=== PATIENT | male | born 1955 | race Caucasian/White ===

== ENCOUNTER 2018-07-03 14:50 | Inpatient (IN) | payer MEDICAID ==
[~2018-07-03] VITALS: Ht 182.9 cm; Wt 114.8 kg
[2018-07-03 15:00] VITALS: BP_SYST 143
[2018-07-03 15:55] LABS: CALCIUM 8.3 mg/dL (8.4-11.0); CREATININE 3.9 mg/dL (0.55-1.30); POTASSIUM 4.7 mmol/L (3.5-5.1)
[2018-07-03 16:02] LABS: ALBUMIN 2.9 g/dL (3.4-4.8); TOTAL BILIRUBIN 0.2 mg/dL (0.0-1.0)
[2018-07-03 16:07] LABS: BASOPHILS % (AUTO) 0.8 % (0.0-2.0); EOSINOPHILS # (AUTO) 0.3 K/uL (0.0-0.4); EOSINOPHILS % (AUTO) 6.1 % (0.0-4.0); HEMATOCRIT 32.5 % (36-54); HEMOGLOBIN 11.1 g/dL (14.0-18.0); LYMPHOCYTES # (AUTO) 1.7 K/uL (1.0-5.5); LYMPHOCYTES % (AUTO) 30.6 % (20.5-51.5); MEAN CORPUSCULAR HEMOGLOBIN 31 pg (27-31); MEAN CORPUSCULAR HGB CONC 34 % (32-36); MEAN CORPUSCULAR VOLUME 91 fL (79.0-98.0); MONOCYTES # (AUTO) 0.4 K/uL (0.0-1.0); MONOCYTES % (AUTO) 7.7 % (1.7-9.3); NEUTROPHILS # (AUTO) 3.1 K/uL (1.8-7.7); NEUTROPHILS % (AUTO) 54.8 % (40.0-70.0); PLATELET COUNT (AUTO) 352 K/uL (130-430); RED BLOOD CELL COUNT(AUTO) 3.58 MIL/uL (4.2-6.2); WHITE BLOOD COUNT (AUTO) 5.5 K/uL (4.8-10.8)
[2018-07-03 16:12] LABS: INR 0.9 (0.80-1.20); PROTHROMBIN TIME 9.6 SECS (9.5-12.5)
[2018-07-03 16:46] LABS: CKMB RELATIVE INDEX 1.2 (0.0-2.9); CREATINE KINASE MB 6.8 ng/mL (0-3.6)
[2018-07-03 18:09] LABS: BILIRUBIN,URINE NEGATIVE (NEGATIVE); BLOOD, URINE NEGATIVE (NEGATIVE); CLARITY/URINE CLEAR (CLEAR); COLOR,URINE YELLOW (YELLOW); GLUCOSE,URINE NEGATIVE (NEGATIVE); KETONES,URINE 1+ (NEGATIVE); LEUKOCYTE ESTERASE ,URINE NEGATIVE (NEGATIVE); NITRITE, URINE NEGATIVE (NEGATIVE); PROTEIN URINE NEGATIVE (NEGATIVE); UROBILINOGEN,URINE 0.2 (0.2-1.0)
[2018-07-03] MEDS ORDERED: DOCU-144 PO (19:09)
[2018-07-03] MEDS ORDERED: INSU100V9 SQ (19:09)
[2018-07-03] MEDS ORDERED: DOXE75CA3 PO (19:09)
[2018-07-03] MEDS ORDERED: NEU300 PO (19:09)
[2018-07-03] MEDS ORDERED: METO-442 PO (19:09)
[2018-07-03] MEDS ORDERED: NOR10 PO (19:09)
[2018-07-03] MEDS ORDERED: HYDR-4039 PO (19:09)
[2018-07-03] MEDS ORDERED: INSU100V8 SQ (19:09)
[2018-07-03] MEDS ORDERED: ONDANSETRON 4 MG ODT TAB PO ONE (19:15)
[2018-07-03] MEDS ORDERED: HYDROcodone/ACETAMIN 5-325 MG TAB (NORCO/ VICODIN) PO ONE (19:15)
[2018-07-03 19:41] VITALS: BP_SYST 157
[2018-07-03] MEDS ORDERED: D5W 1,000 ML IV PRN (20:00)
[2018-07-03] MEDS ORDERED: DOCUSATE SODIUM 100 MG CAPSULE PO PRN (20:00)
[2018-07-03] MEDS ORDERED: GLUCOSE 15 GM GEL (in 37.5 GM TUBE) PO PRN (20:00)
[2018-07-03] MEDS ORDERED: DEXTROSE 50%-WATER 50 ML DISP.SYRIN IVP PRN (20:00)
[2018-07-03] MEDS: METOPROLOL TARTRATE 50 MG TABLET PO SCH (21:26)
[2018-07-03] MEDS: DOXEPINE (SINEQUAN) 25 MG CAP PO SCH (21:28)
[2018-07-04] VITALS: BP_SYST 145
[2018-07-04] MEDS: hydrALAZINE HCL 25 MG TABLET PO SCH ×3 (06:19→17:12)
[2018-07-04 08:16] VITALS: BP_SYST 126
[2018-07-04] MEDS: FUROSEMIDE 40 MG/4 ML VIAL IVP SCH ×2 (08:45→20:35)
[2018-07-04] MEDS: METOPROLOL TARTRATE 50 MG TABLET PO SCH ×2 (08:45→20:35)
[2018-07-04] MEDS: GABAPENTIN 300 MG CAPSULE PO SCH (08:45)
[2018-07-04] MEDS: amLODIPine BESYLATE 10 MG TABLET PO SCH (08:46)
[2018-07-04 12:00] VITALS: BP_SYST 138
[2018-07-04 16:00] VITALS: BP_SYST 141
[2018-07-04 20:32] VITALS: BP_SYST 145
[2018-07-04] MEDS: DOXEPINE (SINEQUAN) 25 MG CAP PO SCH (20:34)
[2018-07-04 23:03] VITALS: BP_SYST 152
[2018-07-05] MEDS: hydrALAZINE HCL 25 MG TABLET PO SCH ×3 (06:15→17:20)
[2018-07-05 07:10] LABS: BASOPHILS # (AUTO) 0.1 K/uL (0.0-0.2); EOSINOPHILS # (AUTO) 0.5 K/uL (0.0-0.4); EOSINOPHILS % (AUTO) 8.7 % (0.0-4.0); HEMATOCRIT 31.3 % (36-54); HEMOGLOBIN 10.5 g/dL (14.0-18.0); LYMPHOCYTES # (AUTO) 1.8 K/uL (1.0-5.5); LYMPHOCYTES % (AUTO) 35.2 % (20.5-51.5); MEAN CORPUSCULAR HEMOGLOBIN 30 pg (27-31); MEAN CORPUSCULAR HGB CONC 34 % (32-36); MEAN CORPUSCULAR VOLUME 90 fL (79.0-98.0); MONOCYTES # (AUTO) 0.5 K/uL (0.0-1.0); MONOCYTES % (AUTO) 8.6 % (1.7-9.3); NEUTROPHILS # (AUTO) 2.3 K/uL (1.8-7.7); NEUTROPHILS % (AUTO) 46.5 % (40.0-70.0); PLATELET COUNT (AUTO) 313 K/uL (130-430); RED BLOOD CELL COUNT(AUTO) 3.47 MIL/uL (4.2-6.2); RED CELL DISTRIBUTION WIDTH 12.9 % (9.0-15.0); WHITE BLOOD COUNT (AUTO) 5.2 K/uL (4.8-10.8)
[2018-07-05 07:20] LABS: CREATININE 3.69 mg/dL (0.55-1.30)
[2018-07-05 07:28] LABS: ALBUMIN 2.3 g/dL (3.4-4.8); TOTAL BILIRUBIN 0.3 mg/dL (0.0-1.0)
[2018-07-05 08:34] VITALS: BP_SYST 131
[2018-07-05] MEDS: amLODIPine BESYLATE 10 MG TABLET PO SCH (09:04)
[2018-07-05] MEDS: GABAPENTIN 300 MG CAPSULE PO SCH (09:04)
[2018-07-05] MEDS: FUROSEMIDE 40 MG/4 ML VIAL IVP SCH ×2 (09:04→21:11)
[2018-07-05] MEDS: METOPROLOL TARTRATE 50 MG TABLET PO SCH ×2 (09:04→21:10)
[2018-07-05 09:25] LABS: CREATININE 3.69 mg/dL (0.55-1.30)
[2018-07-05] MEDS: INSULIN REGULAR, HUMAN 100 UNITS/ML, 10 ML VIAL (novoLIN R) SUBCUT PRN ×3 (11:40→21:29)
[2018-07-05 12:37] VITALS: BP_SYST 145
[2018-07-05 15:21] LABS: CREATININE CLEARANCE,URINE 15.8 ml/min (80-120)
[2018-07-05 15:22] LABS: CREATININE,URINE 17.7 MG/DL (30-125)
[2018-07-05 17:15] VITALS: BP_SYST 143
[2018-07-05] MEDS ORDERED: ACETAMINOPHEN 650 MG SUPP.RECT RC PRN (18:00)
[2018-07-05] MEDS ORDERED: GLIMEPIRIDE 2 MG TABLET PO SCH (20:00)
[2018-07-05 20:30] VITALS: BP_SYST 147
[2018-07-05] MEDS: DOXEPINE (SINEQUAN) 25 MG CAP PO SCH (21:11)
[2018-07-05 23:49] VITALS: BP_SYST 134
[2018-07-06] MEDS: hydrALAZINE HCL 25 MG TABLET PO SCH ×2 (06:28→11:46)
[2018-07-06 07:32] LABS: BASOPHILS % (AUTO) 0.3 % (0.0-2.0); EOSINOPHILS # (AUTO) 0.4 K/uL (0.0-0.4); EOSINOPHILS % (AUTO) 7.4 % (0.0-4.0); HEMATOCRIT 34.4 % (36-54); HEMOGLOBIN 11.3 g/dL (14.0-18.0); LYMPHOCYTES # (AUTO) 1.7 K/uL (1.0-5.5); LYMPHOCYTES % (AUTO) 32.7 % (20.5-51.5); MEAN CORPUSCULAR HEMOGLOBIN 30 pg (27-31); MEAN CORPUSCULAR HGB CONC 33 % (32-36); MEAN CORPUSCULAR VOLUME 92 fL (79.0-98.0); MONOCYTES # (AUTO) 0.4 K/uL (0.0-1.0); NEUTROPHILS # (AUTO) 2.6 K/uL (1.8-7.7); NEUTROPHILS % (AUTO) 52.6 % (40.0-70.0); PLATELET COUNT (AUTO) 350 K/uL (130-430); RED BLOOD CELL COUNT(AUTO) 3.73 MIL/uL (4.2-6.2); RED CELL DISTRIBUTION WIDTH 12.4 % (9.0-15.0); WHITE BLOOD COUNT (AUTO) 5.1 K/uL (4.8-10.8)
[2018-07-06 07:48] LABS: CREATININE 4.06 mg/dL (0.55-1.30); POTASSIUM 4.5 mmol/L (3.5-5.1)
[2018-07-06 07:59] LABS: ALBUMIN 2.4 g/dL (3.4-4.8); TOTAL BILIRUBIN 0.3 mg/dL (0.0-1.0)
[2018-07-06 08:00] VITALS: BP_SYST 119
[2018-07-06] MEDS: amLODIPine BESYLATE 10 MG TABLET PO SCH (08:47)
[2018-07-06] MEDS: FUROSEMIDE 40 MG/4 ML VIAL IVP SCH (08:47)
[2018-07-06] MEDS: GABAPENTIN 300 MG CAPSULE PO SCH (08:47)
[2018-07-06] MEDS: METOPROLOL TARTRATE 50 MG TABLET PO SCH (08:48)
[2018-07-06] MEDS ORDERED: GLIMEPIRIDE 2 MG TABLET PO SCH (09:00)
[2018-07-06 10:23] VITALS: BP_SYST 115
[2018-07-06] MEDS ORDERED: FURO-149 PO (10:39)
[2018-07-06] MEDS ORDERED: DOCU250C14 PO (10:41)
[2018-07-06] MEDS ORDERED: GLIM2TAB2 PO (10:44)
[2018-07-06] MEDS ORDERED: NEU300 PO (10:45)
[2018-07-06 11:03] VITALS: BP_SYST 115
[2018-07-06] MEDS: INSULIN REGULAR, HUMAN 100 UNITS/ML, 10 ML VIAL (novoLIN R) SUBCUT PRN (12:18)
== END 2018-07-06 12:45 | disposition home or self-care (01) | DRG 469 ==
LOC: SED 14:50 → SMU 19:01
PROVIDERS: ADMIT Family Medicine; ATTEND Family Medicine
DX: N17.9 Acute kidney failure, unspecified (principal); E43 Unspecified severe protein-calorie malnutrition; E11.22 Type 2 diabetes mellitus with diabetic chronic kidney disease; E87.70 Fluid overload, unspecified; I12.0 Hypertensive chronic kidney disease with stage 5 chronic kidney disease or end stage renal disease; D64.9 Anemia, unspecified; N18.6 End stage renal disease; Z90.5 Acquired absence of kidney; Z68.34 Body mass index [BMI] 34.0-34.9, adult
CPT/HCPCS: 36415; 71045; 76770; 80053; 81003; 82550-TC; 82553-TC; 82575-TC; 82962; 83880; 84484; 85025; 85610-TC; 85730-TC; 99285; J1815; J1940; Q0162

== ENCOUNTER 2018-08-01 11:30 | Emergency (ER) | payer MEDICAID ==
[~2018-08-01] VITALS: Ht 180.3 cm; Wt 113.4 kg
[~2018-08-01 11:30] MED LIST: DOCU250C14 PO; DOXE75CA3 PO; FURO-149 PO; GLIM2TAB2 PO; HYDR-4039 PO; INSU100V8 SQ; INSU100V9 SQ; METO-442 PO; NEU300 PO; NOR10 PO
[2018-08-01 11:56] VITALS: BP_SYST 178
[2018-08-01 12:31] LABS: BASOPHILS % (AUTO) 0.4 % (0.0-2.0); EOSINOPHILS # (AUTO) 0.1 K/uL (0.0-0.4); EOSINOPHILS % (AUTO) 2.2 % (0.0-4.0); HEMOGLOBIN 9.6 g/dL (14.0-18.0); LYMPHOCYTES # (AUTO) 1.2 K/uL (1.0-5.5); LYMPHOCYTES % (AUTO) 19.9 % (20.5-51.5); MEAN CORPUSCULAR HEMOGLOBIN 31 pg (27-31); MEAN CORPUSCULAR HGB CONC 33 % (32-36); MEAN CORPUSCULAR VOLUME 92 fL (79.0-98.0); MONOCYTES # (AUTO) 0.4 K/uL (0.0-1.0); MONOCYTES % (AUTO) 6.9 % (1.7-9.3); NEUTROPHILS # (AUTO) 4.5 K/uL (1.8-7.7); NEUTROPHILS % (AUTO) 70.6 % (40.0-70.0); PLATELET COUNT (AUTO) 227 K/uL (130-430); RED BLOOD CELL COUNT(AUTO) 3.15 MIL/uL (4.2-6.2); RED CELL DISTRIBUTION WIDTH 13.3 % (9.0-15.0); WHITE BLOOD COUNT (AUTO) 6.2 K/uL (4.8-10.8)
[2018-08-01 12:41] LABS: CALCIUM 8.1 mg/dL (8.4-11.0); CREATININE 3.77 mg/dL (0.55-1.30); POTASSIUM 4.3 mmol/L (3.5-5.1)
[2018-08-01 12:46] LABS: ALBUMIN 2.5 g/dL (3.4-4.8); TOTAL BILIRUBIN 0.2 mg/dL (0.0-1.0)
[2018-08-01 13:32] LABS: BARBITURATE, URINE NEGATIVE (NEG <=200); BENZODIAZEPINE, URINE NEGATIVE (NEG <=150); CANNABINOID, URINE NEGATIVE (NEG <=50); COCAINE, URINE NEGATIVE (NEG <=150); METHAMPHETAMINES SCREEN,URINE NEGATIVE (NEG <=500); OPIATE, URINE NEGATIVE (NEG <=100); PHENCYCLIDINE SCREEN,URINE NEGATIVE (NEG <=25); UR TRICYCLIC ANTIDEPRESSANTS NEGATIVE (NEG <=300); URINE AMPHETAMINE NEGATIVE (NEG <=500); URINE METHADONE NEGATIVE (NEG <=200); URINE OXYCODONE SCREEN NEGATIVE (NEG <=100); URINE PROPOXYPHENE SCREEN NEGATIVE (NEG <=300)
[2018-08-01] MEDS ORDERED: KETOROLAC TROMETHAMINE 30 MG VIAL IVP ONE (15:00)
[2018-08-01] MEDS ORDERED: MORPHINE 4 MG/ML INJ. SYRINGE IVP ONE ×2 (16:00→18:30)
[2018-08-01] MEDS ORDERED: ENALAPRILAT DIHYDRATE 1.25 MG/ML VIAL IVP ONE (19:00)
[2018-08-01 19:55] VITALS: BP_SYST 176
== END 2018-08-01 19:45 | disposition home or self-care (01) ==
LOC: SED 11:30
DX: N28.9 Disorder of kidney and ureter, unspecified (principal); R60.9 Edema, unspecified; E11.40 Type 2 diabetes mellitus with diabetic neuropathy, unspecified; I10 Essential (primary) hypertension; Z59.0 Homelessness; Z85.528 Personal history of other malignant neoplasm of kidney; Z90.89 Acquired absence of other organs; Z79.899 Other long term (current) drug therapy
CPT/HCPCS: 36415; 71045; 80053; 80307; 83880; 84484; 85025; 85379; 85610; 93005; 93970; 96374; 96375; 96376; 99284; J1885; J2270

== ENCOUNTER 2018-09-24 20:16 | Emergency (ER) | payer MEDICAID ==
[~2018-09-24] VITALS: Ht 180.3 cm; Wt 109.8 kg
--- NOTE | 2018-09-24 20:44 | NUR ---
Mansoor wallace in [facility] - 09/24/18 at [address] Syed [email or web address]
[2018-09-24 21:08] VITALS: BP_SYST 182
--- NOTE | 2018-09-24 21:23 | NUR ---
Patient to ER bed 03 to gown for evaluation. Side rails up. Report given to MALLY Muir.
--- NOTE | 2018-09-24 21:24 | NUR ---
Dr. Lynch [facility] for eval
--- NOTE | 2018-09-24 21:25 | NUR ---
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 He has reason to belief his Left kidney is now failing; he was placed on HD x 1, twice before, each time was able to DC HD each time. No other complaints and or injuries noted or observed. Resting on gurney with rails up
[2018-09-24 22:20] VITALS: BP_SYST 168
--- NOTE | 2018-09-24 22:20 | NUR ---
Patient given written and verbal discharge instructions and verbalizes understanding. ER MD discussed with patient the results and treatment provided. Patient in stable condition. ID arm band removed. Rx of Lactulose and Mineral Oil given. Patient educated on pain management and to follow up with PMD. Pain Scale 0/10. Opportunity for questions provided and answered. Medication side effect fact sheet provided.
== END 2018-09-24 22:20 | disposition home or self-care (01) ==
LOC: SED 20:16
DX: R10.84 Generalized abdominal pain (principal); E11.40 Type 2 diabetes mellitus with diabetic neuropathy, unspecified; I10 Essential (primary) hypertension; Z85.528 Personal history of other malignant neoplasm of kidney; Z79.899 Other long term (current) drug therapy
CPT/HCPCS: 93005; 99284